=== PATIENT | female | born 1985 | race Caucasian/White ===

== ENCOUNTER → 2017-03-05 | Outpatient (CLI) | payer OTHER ==
--- NOTE | 2017-03-05 14:21 | DI ---
MRI RIGHT ANKLE SCAN, 03/05/2017 12:55 PM: Clinical History: Right ankle pain. Previous Exam: 04/10/2016. Technique: Axial, coronal, and sagittal PD and fat saturated PD. There is edema along the medial aspect of the ankle. The patient is status post ORIF of a fracture of the medial malleolus and the screws have been removed. Small effusions are present in the anterior a nd posterior aspects of the ankle joint. Since the previous exam, the patient has developed sclerosis with an associated small subchondral cyst in the dome of the talus on the medial aspect in proximity to the medial malleolar fracture with a fissure in the chondral surface consistent with an osteochon dral defect. On the medial sagittal images, there is still a defect in the articular surface between the medial malleolar fracture component and the mid and posterior portions of the tibial articular romero rface. There is still mild hyperintensity at the fracture site but the fracture itself has healed. Th ere are chronic tears of the anterior syndesmotic ligament and the anterior talofibular ligament. The posterior syndesmotic ligament and the posterior talofibular ligament as well as the calcaneofibular ligament are intact. The transverse tibiofibular ligament and the tibial slip are also normal. No ab normality of the extensor tendons are identified. The posterior tibial tendon still has a large amoun t of fluid in the tendon sheath near the distal aspect of the calcaneus. There is also fluid in the f lexor digitorum longus tendon sheath and an excess amount of fluid in the flexor hallucis longus tend on sheath. These findings are consistent with tenosynovitis similar to the last exam. The cervical li gament and the intraosseous talocalcaneal ligament are intact. The spring ligaments are normal. The p lantar fascia and the Achilles tendon are also normal. Readin. Since the last exam, the patient has had a fracture of the medial malleolus with ORIF and subsequ ent removal of the screws. The fracture site has healed. There is still a gap present in the articula r surface of the tibia at the site of the medial malleolar fracture. There is a chondral fissure with the beginning of a subchondral cyst in the medial portion of the dome of the talus consistent with a n osteochondral defect. Severe tenosynovitis is present in the tibialis posterior tendon near the dis martir aspect of the calcaneus. There is also tenosynovitis of the flexor digitorum longus and flexor gandhi llucis longus tendons. Chronic tears are present in the anterior syndesmotic and anterior talofibular ligaments. 2. The extensor tendons and the remaining flexor tendons as well as the Achilles tendon and plantar fascia are normal. The spring ligament, the transverse tibiofibular ligament, the cervical and intero sseous talocalcaneal ligaments, the posterior syndesmotic and posterior talofibular ligament, and the CHL are also normal.
== END ==
LOC: MRI 12:52
PROVIDERS: ATTEND Orthopaedic Surgery
DX: M25.571 Pain in right ankle and joints of right foot (principal); M65.871 Other synovitis and tenosynovitis, right ankle and foot
CPT/HCPCS: 73721

== ENCOUNTER → 2017-03-05 | Outpatient (CLI) | payer OTHER ==
--- NOTE | 2017-03-05 12:10 | DI ---
RIGHT ANKLE, 03/05/2017 11:19 AM: Clinical History: Right ankle pain. Previous Exam: 07/02/2016. 3 views are submitted. There is no acute soft tissue, osseous, or joint abnormality. The patient is s tatus post ORIF of a medial malleolar fracture and the threaded screws have been removed since the pr evious exam. There is a bony density at the tip of the fibula either representing an accessory ossicl e or changes from previous trauma. Reading: The fracture of the medial malleolus has healed. No acute abnormality is noted.
--- NOTE | 2017-03-05 12:10 | DI ---
RIGHT FEMUR, 03/05/2017 11:19 AM: Clinical History: Right thigh pain. Previous Exam: None at this facility. AP and lateral views are submitted. There is no acute soft tissue, osseous, or joint abnormality. Reading: Normal right femur exam.
== END ==
LOC: ORTHO 11:36
PROVIDERS: ATTEND Orthopaedic Surgery
DX: M25.571 Pain in right ankle and joints of right foot (principal); M79.651 Pain in right thigh; W00.0XXA Fall on same level due to ice and snow, initial encounter; Z98.890 Other specified postprocedural states
CPT/HCPCS: 73552; 73610